=== PATIENT | female | born 1980 | race Caucasian/White ===

== ENCOUNTER → 2020-04-13 | Outpatient (CLI) | payer BC | END | disposition home or self-care (01) | LOC: STAR 11:06 | PROVIDERS: ATTEND Anesthesiology | DX: Z20.828 Contact with and (suspected) exposure to other viral communicable diseases (principal) | CPT/HCPCS: 36415; 87635 ==

== ENCOUNTER 2020-04-17 08:49 | Day surgery (SDC) | payer BC ==
[~2020-04-17] VITALS: Ht 170.2 cm; Wt 68.6 kg
[~2020-04-17 08:49] MED LIST: OXYMETAZOLINE NASAL SPRAY 0.05%, 15ML ONE
[2020-04-17] MEDS ORDERED: LACTATED RINGERS 1,000 ML IV SCH (09:31)
[2020-04-17 09:42] LABS: HCG UR SG 1.016 (1.003-1.030)
[2020-04-17] MEDS ORDERED: CHLORHEXIDINE 15 ML UDC MM ONE (10:00)
[2020-04-17] MEDS ORDERED: SCOPOLAMINE 1MG PATCH TD ONE (10:07)
[2020-04-17] MEDS ORDERED: FLUO40CA9 PO (10:12)
[2020-04-17 10:15] VITALS: BP 113/73
[2020-04-17] MEDS ORDERED: MEPERIDINE/PF 25MG/0.5ML IVPush PRN (10:30)
[2020-04-17] MEDS ORDERED: LABETALOL 5MG/ML, 20ML IV PRN (10:30)
[2020-04-17] MEDS ORDERED: HYDROmorphone 1 MG/ML, 1ML INJ IVPush PRN (10:30)
[2020-04-17] MEDS ORDERED: PROMETHAZINE 25 MG/ML, 1ML IVPush PRN (10:30)
[2020-04-17] MEDS ORDERED: OXYcodone 5 MG/5 ML ORAL.SOL UDC PO PRN (10:30)
[2020-04-17] MEDS ORDERED: hydrALAzine 20 MG/ML, 1ML IV PRN (10:30)
[2020-04-17] MEDS ORDERED: ACETAMINOPHEN 325 MG TABLET PO PRN (10:30)
[2020-04-17] MEDS ORDERED: SCOPOLAMINE 1MG PATCH TD SCH (10:30)
[2020-04-17] MEDS ORDERED: FENTANYL PF 250 MCG/5ML ONE (10:33)
[2020-04-17] MEDS ORDERED: MIDAZOLAM 1 MG/ML, 2ML ONE (10:33)
[2020-04-17] MEDS ORDERED: PROPOFOL 50 ML ONE (10:41)
[2020-04-17] MEDS ORDERED: METOCLOPRAMIDE 5 MG/ML, 2ML ONE (10:47)
[2020-04-17] MEDS ORDERED: SUGAMMADEX 200 MG/2 ML IVPush ONE (10:47)
[2020-04-17] MEDS ORDERED: OXYMETAZOLINE NASAL SPRAY 0.05%,30ML NAS ONE (11:04)
[2020-04-17] MEDS ORDERED: GLYCOPYRROLATE 0.2MG/1ML, 5ML ONE (11:09)
[2020-04-17] MEDS ORDERED: SUCCINYLCHOLINE 20 MG/ML, 10ML ONE (11:09)
[2020-04-17] MEDS ORDERED: NEOSTIGMINE 1 MG/ML, 10ML ONE (11:09)
[2020-04-17] MEDS ORDERED: CEFAZOLIN 1,000 MG ONE (11:09)
[2020-04-17] MEDS ORDERED: ONDANSETRON 2MG/ML, 2ML ONE (11:09)
[2020-04-17] MEDS ORDERED: ROCURONIUM 10MG/ML,5ML ONE (11:09)
[2020-04-17] MEDS ORDERED: ESMOLOL 100 MG/10 ML ONE (11:09)
[2020-04-17] MEDS ORDERED: DEXAMETHASONE 4 MG/ML, 1ML ONE (11:09)
[2020-04-17] MEDS ORDERED: PROPOFOL 10 MG/ML, 20ML ONE (11:09)
[2020-04-17] MEDS ORDERED: MEPERIDINE/PF 25MG/ML,1ML ONE (11:34)
[2020-04-17] MEDS ORDERED: HYDROmorphone 1 MG/ML, 1ML INJ ONE (11:39)
[2020-04-17] MEDS ORDERED: FENTANYL PF 100 MCG/2ML ONE (11:39)
[2020-04-17] MEDS: FENTANYL PF 100 MCG/2ML IV PRN ×2 (11:41→11:49)
[2020-04-17] MEDS ORDERED: ACETAMINOPHEN 650 MG/20.3 ML UDC ONE (11:52)
== END 2020-04-17 14:25 | disposition home or self-care (01) ==
LOC: OUT 08:49
PROVIDERS: ATTEND Otolaryngology
DX: J03.90 Acute tonsillitis, unspecified (principal); J35.01 Chronic tonsillitis; D68.51 Activated protein C resistance; Z79.899 Other long term (current) drug therapy; Z98.890 Other specified postprocedural states; Z83.2 Family history of diseases of the blood and blood-forming organs and certain disorders involving the immune mechanism; Z83.3 Family history of diabetes mellitus; Z82.49 Family history of ischemic heart disease and other diseases of the circulatory system; Z80.9 Family history of malignant neoplasm, unspecified
CPT/HCPCS: 42826; 81025; 88304; J0330; J0690; J1100; J1170; J2175; J2250; J2405; J2704; J2710; J2765; J3010; J7120